=== PATIENT | female | born 1970 | race Caucasian/White ===

== ENCOUNTER 2021-05-07 22:42 | Emergency (ER) | payer OTHER ==
[~2021-05-07] VITALS: Ht 162.6 cm; Wt 62.6 kg
[~2021-05-07 22:42] MED LIST: CLEOCIN HCL150 MG PO; LISINOPRIL5 MG PO; NOHOMEMEDICATIONS
[2021-05-07 23:01] VITALS: BP 164/116
[2021-05-07] MEDS ORDERED: IRON325 M1 PO (23:05)
[2021-05-07] MEDS ORDERED: AMLODIPINE BESY10 MG PO (23:05)
[2021-05-07] MEDS ORDERED: CARVEDILOL12.5 MG PO (23:06)
[2021-05-07] MEDS ORDERED: NORVASC10 MG PO (23:12)
== END 2021-05-07 23:50 | disposition home or self-care (01) ==
LOC: M.ERS 22:42
DX: I10 Essential (primary) hypertension (principal); Z76.0 Encounter for issue of repeat prescription; F17.210 Nicotine dependence, cigarettes, uncomplicated; Z88.0 Allergy status to penicillin; Z86.73 Personal history of transient ischemic attack (TIA), and cerebral infarction without residual deficits